=== PATIENT | male | born 1935 | race Caucasian/White ===

== ENCOUNTER 2021-11-04 11:12 | Emergency (ER) | payer MEDICARE, OTHER ==
[~2021-11-04] VITALS: Ht 172.7 cm; Wt 69.4 kg
[2021-11-04 11:14] VITALS: BP 100/62
--- NOTE | 2021-11-04 11:23 | ED General ---
General Stated Complaint: BOWEL CONSTIPATION Source of Information: Patient, EMS History of Present Illness Date Seen by Provider: Nov 04, 2021 Time Seen by Provider: 11:12 Initial Comments 86-year-old male presenting with complaints of constipation for the last several days. He had pain in his rectum when he tried bear down to have a bowel movement. He was having hard stool prior to the last few days. He had been trying to take a stool softener but it had not helped him pass any stools yet. He had been told by the clinic to start taking MiraLAX but he has not started that yet. He denies having any previous problems with constipation. He denies having any nausea, vomiting, fever, chills. Timing/Duration: 1 Week Severity: Moderate Associated Systoms: No Chest Pain, No Cough, No Diaphoresis, No Fever/Chills, No Headaches, No Loss of Appetite, No Malaise, No Nausea/Vomiting, No Rash, No Seizure, No Shortness of Air, No Syncope, No Weakness Allergies and Home Medications Patient Home Medication List Home Medication List Reviewed: Yes Review of Systems Review of Systems Constitutional: No chills, No fever EENTM: no symptoms reported Respiratory: no symptoms reported Cardiovascular: no symptoms reported Gastrointestinal: see HPI Genitourinary: No dysuria Musculoskeletal: no symptoms reported Skin: No rash Psychiatric/Neurological: No Symptoms Reported Physical Exam Vital Signs Vital Signs - First Documented 11/04/21 11:14 Temp 35.0 Pulse 59 Resp 18 B/P (MAP) 100/62 (75) Pulse Ox 100 O2 Delivery Room Air Capillary Refill : Height, Weight, BMI Height: '" Weight: lbs. oz. kg; BMI Method: General Appearance: No Apparent Distress, WD/WN Gastrointestinal: Normal Bowel Sounds, No Pulsatile Mass, Non Tender, Soft; No Distended, No Guarding, No Rebound, No Tenderness Rectal: Normal Rectal Tone, Heme Negative Stool, Other (Hard small balls of stool in the rectum for fecal impaction. This was digitally disimpacted and patient had improved relief of his symptoms) Extremity: Normal Capillary Refill, No Pedal Edema Neurologic/Psychiatric: Alert Skin: Normal Color, Warm/Dry Progress/Results/Core Measures Suspected Sepsis SIRS Temperature: Pulse: Respiratory Rate: Blood Pressure / Mean: Results/Orders My Orders Orders - PIA PAYTON MD Acute Abd Series (11/04/21 11:44) Vital Signs/I&O 11/04/21 11/04/21 11:14 12:13 Temp 35.0 Pulse 59 79 Resp 18 16 B/P (MAP) 100/62 (75) Pulse Ox 100 98 O2 Delivery Room Air Room Air Capillary Refill : Progress Note : Progress Note Obtain x-ray of his abdomen and pelvis to look for signs of obstruction on an acute abdomen series after performing digital rectal exam and digital disimpaction of this rectum. There were no obvious signs of obstruction or free air on the x-rays. Patient did report improved symptoms after the digital disimpaction of his rectum Diagnostic Imaging Diagonstic Imaging: Xray Plain Films/CT/US/NM/MRI: abdomen Comments NAME: RHONDA FAJARDO [facility] REC#: [id number] PT STATUS: REG ER : 1935 PHYSICIAN: PIA PAYTON MD ADMIT DATE: 11/04/21/ER FS Draft Date of Exam:11/04/21 ACUTE ABD SERIES Acute abdomen series at 11:50. Indication: Abdominal pain, constipation There are no prior studies available for comparison. The accompanying erect PA chest shows the heart size to be within normal limits. The lungs are generally clear. There is no evidence for failure, pneumonia or for pleural effusion. There are areas of increased density overlying both upper lobes. These are felt to be secondary to superimposition of the osseous structures. The mediastinum is not widened. Supine and erect views were obtained. There is some gas in both the large and small bowel in a nonspecific fashion. There is no evidence for bowel obstruction. There does appear to be a considerable amount of fecal material in the ascending and descending colon as well as the transverse colon. There is no sign of a fecal impaction however. There is no evidence for a pneumoperitoneum. There is no mass or organomegaly appreciated. There are numerous radiopaque seed implants overlying the region of the prostate gland. There are also orthopedic fixation screws coursing obliquely through both femoral heads and necks. There is no acute bony abnormality noted. Impression: 1. There is no acute abnormality of the chest, abdomen or pelvis. 2. The bowel gas pattern is nonspecific. However there does appear to be a considerable amount of fecal material in the ascending, descending and transverse colon. There is no evidence for a fecal impaction however.. Dictated on workstation # [id number] Dict: 11/04/21 1156 Trans: 11/04/21 1201 [facility] [id number] Interpreted by: ELENO FIERRO MD Electronically signed by: Reviewed: Reviewed by Me Departure Impression Primary Impression: Constipation Qualified Codes: K59.00 - Constipation, unspecified Additional Impression: Fecal impaction in rectum Disposition: HOME, SELF-CARE Condition: Stable Departure-Patient Inst. Decision time for Depature: 12:03 Referrals: JAY PEPPER MD Patient Instructions: Constipation, Adult ED, Fecal Impaction (DC) Add. Discharge Instructions: Make sure you are drinking plenty of water and staying hydrated. Use Miralax 17 grams or 1 capful mixed in 8 ounces of water or juice daily. Take this for constipation. Follow up with Dr. Pepper about the constipation and if you continue to have issues he may need you to take Miralax daily or another laxative to help make sure your stools are soft and regular. PIA PAYTON MD Nov 04, 2021 11:22
--- NOTE | 2021-11-04 12:01 | Diagnostic Imaging Report ---
Acute abdomen series at 11:50. Indication: Abdominal pain, constipation There are no prior studies available for comparison. The accompanying erect PA chest shows the heart size to be within normal limits. The lungs are generally clear. There is no evidence for failure, pneumonia or for pleural effusion. There are areas of increased density overlying both upper lobes. These are felt to be secondary to superimposition of the osseous structures. The mediastinum is not widened. Supine and erect views were obtained. There is some gas in both the large and small bowel in a nonspecific fashion. There is no evidence for bowel obstruction. There does appear to be a considerable amount of fecal material in the ascending and descending colon as well as the transverse colon. There is no sign of a fecal impaction however. There is no evidence for a pneumoperitoneum. There is no mass or organomegaly appreciated. There are numerous radiopaque seed implants overlying the region of the prostate gland. There are also orthopedic fixation screws coursing obliquely through both femoral heads and necks. There is no acute bony abnormality noted. Impression: 1. There is no acute abnormality of the chest, abdomen or pelvis. 2. The bowel gas pattern is nonspecific. However there does appear to be a considerable amount of fecal material in the ascending, descending and transverse colon. There is no evidence for a fecal impaction however.. Dictated by: Dictated on workstation # [id number]
== END 2021-11-04 12:13 | disposition home or self-care (01) ==
LOC: EDUNIT# 11:12 → ER FS 11:13
DX: K59.00 Constipation, unspecified (principal)
CPT/HCPCS: 74022

== ENCOUNTER 2021-11-16 20:26 | Emergency (ER) | payer MEDICARE, OTHER ==
[~2021-11-16] VITALS: Ht 172.7 cm; Wt 69.3 kg
[2021-11-16] MEDS ORDERED: KETOROLAC 30 MG/ML VIAL IM STA (20:35)
[2021-11-16] MEDS ORDERED: ORPHENADRINE 60 MG/2 ML (NORFLEX) AMP (ED ONLY) IM STA (20:35)
--- NOTE | 2021-11-16 20:36 | ED Fall/Injury ---
General Chief Complaint: Trauma-Non Activation Stated Complaint: FALL;BACK PAIN Source: patient History of Present Illness Date Seen by Provider: Nov 16, 2021 Time Seen by Provider: 20:26 Initial Comments 86-year-old male presenting with pain in his ribs left greater than right. He also has pain in his shoulder blade area left greater than right. He had slipped on some black ice around 5 or 6 PM tonight. He denies hitting his head or losing consciousness. He did have the breath knocked out of him when he fell. He denies any other injuries. He had some out of date aspirin at home but did not take it since he was not sure if it would help him. He was still having a lot of pain and so he had called the ambulance to bring him to the ED. His pain is worse with movements and deep breaths. Location Injury Occurred: driveway at residence Occurred: this evening Severity: severe Injuries/Pain Location: chest (posterior chest, bilateral shoulder blades and bilateral ribs) Context: slipped (on black ice) Loss of Consciousness: no loss of consciousness Modifying Factors: Worse With Movement Associated Symptoms (Fall): No Abdominal Pain; Chest Pain (posterior chest pain with ribs and shoulder blades); No Confusion, No Dizziness, No Headache, No Lightheadedness, No Muscle Spasms, No Nausea/Vomiting, No Neck Pain, No Ringing in Ears, No Seizures, No Shortness of Air, No Slurred Speech, No Trouble Walking, No Vision Changes Allergies and Home Medications Allergies Coded Allergies: No Known Drug Allergies (Unverified , 11/16/21) Patient Home Medication List Home Medication List Reviewed: Yes Hydrocodone/Acetaminophen (Hydrocodone-Acetamin 5-325 mg) 1 Each Tablet, 1 TAB PO Q8H PRN for PAIN-SEVERE (8-10) Prescribed by: PIA PAYTON on 11/16/212126 Ibuprofen (Ibuprofen) 600 Mg Tablet, 600 MG PO Q6H PRN for PAIN-MILD Prescribed by: PIA PAYTON on 11/16/212125 Review of Systems Review of Systems Constitutional: No chills, No dizziness, No fever Eyes: No Symptoms Reported Ears, Nose, Mouth, Throat: no symptoms reported Respiratory: No short of breath, No stridor, No wheezing Cardiovascular: see HPI Gastrointestinal: no symptoms reported Genitourinary: no symptoms reported Musculoskeletal: see HPI Skin: No change in color Psychiatric/Neurological: Denies Headache, Denies Numbness, Denies Paresthesia, Denies Weakness Past Guozhfz-Iqebut-Oemwug Hx Patient Social History Tobacco Use?: No Substance use?: No Alcohol Use?: No Immunizations Up To Date First/Initial COVID19 Vaccinat: 2020 Second COVID19 Vaccination Adis: 2020 Physical Exam Vital Signs Vital Signs - First Documented Capillary Refill : Height, Weight, BMI Height: '" Weight: lbs. oz. kg; 23.00 BMI Method: General Appearance: WD/WN, no apparent distress HEENT: PERRL/EOMI, pharynx normal Neck: non-tender, full range of motion, supple, normal inspection Cardiovascular: normal peripheral pulses, regular rate, rhythm Respiratory: lungs clear, normal breath sounds, no respiratory distress, no accessory muscle use, other (pain to posterior chest left greater than right, pain along left lower ribs. no crepitus or step offs) Gastrointestinal: normal bowel sounds, non tender, soft, no pulsatile mass Rectal: deferred Back: no CVA tenderness, no vertebral tenderness Extremities: normal range of motion, non-tender, normal capillary refill Neurologic/Psychiatric: alert, oriented x 3 Skin: normal color, warm/dry; No ecchymosis [place] Coma Score Best Eye Response: (4) Open Spontaneously Best Verbal Response: (5) Oriented Best Motor Response: (6) Obeys Commands [place] Total: 15 Progress/Results/Core Measures Results/Orders My Orders Orders - PIA PAYTON MD Ketorolac Injection (Toradol Injection) (11/16/21 20:35) Orphenadrine Inj (Ed Only) (Norflex Inje (11/16/21 20:35) Ct Chest Wo (11/16/21 20:35) Hydrocodone/Apap 5/325 Tablet (Lortab 5 (11/16/21 21:21) Rx-Hydrocodone/Apap 5-325 Mg (Rx-Vicodin (11/16/21 21:30) Vital Signs/I&O 11/16/21 11/16/21 11/16/21 20:26 20:26 21:29 Temp 37.0 37.0 Pulse 74 74 72 Resp 18 18 18 B/P (MAP) 139/66 (90) 139/66 (90) 126/68 Pulse Ox 98 98 99 O2 Delivery Room Air Room Air Room Air Progress Progress Note #1: Progress Note With this complaint of pain to the ribs as well as posterior back and shoulder blades well obtain a CT scan to look for fractures or compressions. For pain give Toradol 30 mg IM and Norflex 30 mg IM for spasms and pain. Progress Note #2: Progress Note No acute fracture or dislocation seen on the CT scan of the chest. He had old compression fractures of the thoracic vertebrae. He does have a small hiatal hernia. Counseled patient on results and findings. We will add an hydrocodone for severe pain and have him continue anti-inflammatories. Diagnostic Imaging Diagonstic Imaging: CT Plain Films/CT/US/NM/MRI: chest Comments NAME: RHONDA FAJARDO [facility] REC#: [id number] PT STATUS: REG ER : 1935 PHYSICIAN: PIA PAYTON MD ADMIT DATE: 11/16/21/ER FS Signed Date of Exam:11/16/21 CT CHEST WO PROCEDURE: CT chest without contrast. TECHNIQUE: Multiple contiguous axial images were obtained through the chest without the use of intravenous contrast. Auto Exposure Controls were utilized during the CT exam to meet ALARA standards for radiation dose reduction. INDICATION: Rib and back pain, fall. COMPARISON: None. FINDINGS: The heart is slightly enlarged with coronary artery disease. There is no pericardial effusion. There is no lymphadenopathy. The lungs are clear. No mass or nodular infiltrate is seen. The ribs are grossly unremarkable. There is no obvious fracture. There is no pneumothorax or hemothorax. Chronic appearing compression fractures are seen throughout the thoracic spine. No acute appearing fracture or malalignment is identified. Visualized upper abdominal solid organs are intact. There is a small hiatal hernia. IMPRESSION: 1. Coronary artery disease. 2. No acute trauma identified. 3. Small hiatal hernia. Dictated by: Dictated on workstation # [id number] Dict: 11/16/212057 Trans: 11/16/212108 [facility] [id number] Interpreted by: PETER HENSON Electronically signed by: PETER HENSON 11/16/212108 Reviewed: Reviewed by Me Departure Impression Primary Impression: Bilateral contusion of ribs Additional Impressions: Contusion of left scapular region Qualified Codes: S40.012A - Contusion of left shoulder, initial encounter Contusion of right scapular region Qualified Codes: S40.011A - Contusion of right shoulder, initial encounter Contusion of thoracic wall Qualified Codes: S20.223A - Contusion of bilateral back wall of thorax, initial encounter Fall from slipping on ice Qualified Codes: W00.9XXA - Unspecified fall due to ice and snow, initial encounter Disposition: 01 HOME, SELF-CARE Condition: Stable Departure-Patient Inst. Decision time for Depature: 21:24 Referrals: NO,LOCAL PHYSICIAN (PCP/Family) Primary Care Physician Patient Instructions: Rib Fracture or Bruised Rib ED, Minor Contusion ED, Blunt Chest Trauma ED Add. Discharge Instructions: You may alternate ice and heat to your chest wall and ribs to help with pain. Use anti-inflammatories such as ibuprofen to help with pain. For severe pain use the narcotic pain medicine, hydrocodone with acetaminophen. If you are taking the hydrocodone medication consider using a laxative to help prevent constipation. Follow-up through the clinic for continued concerns All discharge instructions reviewed with patient and/or family. Voiced understanding. Scripts Hydrocodone/Acetaminophen (Hydrocodone-Acetamin 5-325 mg) 1 Each Tablet 1 TAB PO Q8H PRN for PAIN-SEVERE (8-10) for 5 Days, #15 TAB 0 Refills Prov: PIA PAYTON MD 11/16/21 Ibuprofen (Ibuprofen) 600 Mg Tablet 600 MG PO Q6H PRN for PAIN-MILD for 10 Days, #40 TAB 0 Refills Prov: PIA PAYTON MD 11/16/21 PIA PAYTON MD Nov 16, 2021 20:36
--- NOTE | 2021-11-16 21:07 | Diagnostic Imaging Report ---
PROCEDURE: CT chest without contrast. TECHNIQUE: Multiple contiguous axial images were obtained through the chest without the use of intravenous contrast. Auto Exposure Controls were utilized during the CT exam to meet ALARA standards for radiation dose reduction. INDICATION: Rib and back pain, fall. COMPARISON: None. FINDINGS: The heart is slightly enlarged with coronary artery disease. There is no pericardial effusion. There is no lymphadenopathy. The lungs are clear. No mass or nodular infiltrate is seen. The ribs are grossly unremarkable. There is no obvious fracture. There is no pneumothorax or hemothorax. Chronic appearing compression fractures are seen throughout the thoracic spine. No acute appearing fracture or malalignment is identified. Visualized upper abdominal solid organs are intact. There is a small hiatal hernia. IMPRESSION: 1. Coronary artery disease. 2. No acute trauma identified. 3. Small hiatal hernia. Dictated by: Dictated on workstation # [id number]
[2021-11-16] MEDS ORDERED: HYDROcodone/APAP 5 MG/325 MG (LORTAB) TAB PO STA (21:21)
[2021-11-16] MEDS ORDERED: IBUP-1773 PO (21:26)
[2021-11-16] MEDS ORDERED: ACHD5005 PO (21:26)
[2021-11-16 21:29] VITALS: BP 126/68
== END 2021-11-16 21:29 | disposition home or self-care (01) ==
LOC: EDUNIT# 20:26 → ER FS 20:28
DX: S40.012A Contusion of left shoulder, initial encounter (principal); S40.011A Contusion of right shoulder, initial encounter; S20.223A Contusion of bilateral back wall of thorax, initial encounter; W00.9XXA Unspecified fall due to ice and snow, initial encounter
CPT/HCPCS: 71250; 96372